=== PATIENT | female | born 1985 | race Caucasian/White ===

== ENCOUNTER 2020-01-21 17:47 | Emergency (ER) | payer BC ==
[~2020-01-21] VITALS: Ht 162.6 cm; Wt 72.7 kg
[~2020-01-21 17:47] MED LIST: AMOXICILLIN 50500 MG PO; ATIVAN 1MG T1 MG/TAB PO; BCP TD; CLEOCIN HC150 MG/CAP PO; CLOMID50 MG PO; COLACE50 MG PO; EXPECTA PO; LEXAPRO20 MG PO; NEXIUM 20MG20 MG PO; PERCOCET 325 MG1 TA2 PO; PREDNISONE20 MG PO; PRENATAL1 TA2 PO; SLOW FE45 MG PO; TYLENOL W/COD1 UDTAB PO; ZOFRAN ODT4 MG PO; ZOLOFT; [UNRECOGNIZED DRUG - OTHER]; [UNRECOGNIZED DRUG - OTHER]
[2020-01-21 17:50] VITALS: BP 145/83; PULSE 96; TEMP 98.2
[2020-01-21] MEDS ORDERED: WELLBUTRIN XL150 MG PO (18:03)
[2020-01-21] MEDS ORDERED: PRISTIQ 50 MG T50 MG PO (18:03)
[2020-01-21] MEDS ORDERED: NUVARING VAG RING VG (18:04)
[2020-01-21] MEDS ORDERED: NEXIUM 40MG40 MG PO (18:04)
== END 2020-01-21 18:20 | disposition home or self-care (01) ==
LOC: COL.ER 17:47
DX: S61.012A Laceration without foreign body of left thumb without damage to nail, initial encounter (principal); F41.9 Anxiety disorder, unspecified; W26.0XXA Contact with knife, initial encounter; Y92.009 Unspecified place in unspecified non-institutional (private) residence as the place of occurrence of the external cause